=== PATIENT | male | born 1965 | race Caucasian/White ===

== ENCOUNTER 2019-03-25 12:38 | Day surgery (SDC) | payer MEDICAID ==
[~2019-03-25] VITALS: Ht 165.1 cm; Wt 102.7 kg
[~2019-03-25 12:38] MED LIST: SODIUM CHLORIDE 0.9% 1,000 ML ONE
[2019-03-25] MEDS ORDERED: PROPOFOL 1% 20 ML VIAL IVP ONE (12:39)
[2019-03-25] MEDS ORDERED: ACET-66 PO (12:56)
[2019-03-25] MEDS ORDERED: RIVA20TA PO (12:56)
[2019-03-25] MEDS ORDERED: SODIUM CHLORIDE 0.9% 1,000 ML IV ONE (13:00)
== END 2019-03-25 17:45 | disposition home or self-care (01) ==
LOC: SURGERY 12:38
PROVIDERS: ATTEND Internal Medicine Gastroenterology
DX: K62.5 Hemorrhage of anus and rectum (principal); K59.00 Constipation, unspecified; K64.1 Second degree hemorrhoids; K63.89 Other specified diseases of intestine; Z87.891 Personal history of nicotine dependence; D64.9 Anemia, unspecified; Z85.72 Personal history of non-Hodgkin lymphomas; Z87.01 Personal history of pneumonia (recurrent); Z86.718 Personal history of other venous thrombosis and embolism; Z79.01 Long term (current) use of anticoagulants
CPT/HCPCS: 45378; J2704; J7030

== ENCOUNTER 2019-04-08 11:43 | Day surgery (SDC) | payer MEDICAID ==
[~2019-04-08] VITALS: Ht 165.1 cm; Wt 97.7 kg
[~2019-04-08 11:43] MED LIST changes: +ACET-66 PO; +RIVA20TA PO; +SODIUM CHLORIDE 0.9% 1,000 ML IV ONE
[2019-04-08] MEDS ORDERED: PROPOFOL 1% 20 ML VIAL IVP ONE (22:15)
[2019-04-08] MEDS ORDERED: LIDOCAINE 1% 10 ML VIAL ONE (22:15)
== END 2019-04-08 17:05 | disposition home or self-care (01) ==
LOC: SURGERY 11:43
PROVIDERS: ATTEND Internal Medicine Gastroenterology
DX: D64.9 Anemia, unspecified (principal); K29.50 Unspecified chronic gastritis without bleeding; K25.9 Gastric ulcer, unspecified as acute or chronic, without hemorrhage or perforation; B96.89 Other specified bacterial agents as the cause of diseases classified elsewhere
CPT/HCPCS: 43239; 88305; 88312; 88313; C1769; J2704; J3490; J7030